=== PATIENT | male | born 1985 | race Caucasian/White ===

== ENCOUNTER → 2019-12-21 10:49 | Outpatient (BNVA) | payer MEDICARE, MEDICAID, SELFPAY | PROVIDERS: PCP Nurse Practitioner Family; Visit Provider Nurse Practitioner Family | DX: E84.9 Cystic fibrosis, unspecified (principal) | CPT/HCPCS: 80053; 82977 ==

== ENCOUNTER → 2020-03-25 12:30 | Outpatient (BNVA) | payer MEDICARE, MEDICAID, SELFPAY | PROVIDERS: PCP Nurse Practitioner Family; Visit Provider Nurse Practitioner Family | DX: Z20.2 Contact with and (suspected) exposure to infections with a predominantly sexual mode of transmission (principal) | CPT/HCPCS: 87491; 87591 ==

== ENCOUNTER → 2021-01-17 10:01 | Outpatient (BNVA) | payer MEDICARE, MEDICAID, SELFPAY | PROVIDERS: PCP Nurse Practitioner Family; Visit Provider Nurse Practitioner Family | DX: L29.3 Anogenital pruritus, unspecified (principal) | CPT/HCPCS: 81000; 87491; 87591; 87661 ==

== ENCOUNTER 2021-03-25 11:33 | Outpatient (CLI) | payer MEDICARE, MEDICAID, SELFPAY ==
--- NOTE | 2021-03-25 11:43 | MR_ITS ---
WS: [id number] MRI HEAD WITH CONTRAST WITH ATTENTION TO THE INTERNAL AUDITORY CANALS TECHNIQUE: Sagittal T1, T2 axial, T2 axial flair, axial susceptibility weighted imaging, axial diffus ion weighted images, and coronal T2 images were obtained. Pre and post T1 axial and post T1 coronal i mages. ADC and FSPGR images. Post gadolinium images with attention to the internal auditory canals. A xial fiesta imaging. CLINICAL INFORMATION: AMIRA SENSORINEURAL HEARING LOSS;AMIRA TINNITUS COMPARISON: None. FINDINGS: No evidence of restricted diffusion to suggest acute ischemia. Ventricular system and basal cisterns are patent. Normal camp-white differentiation. No suspicious intracranial signal abnormalities. Nelda l posterior fossa. Normal vascular flow voids at the skull base. No extra-axial fluid collections. No evidence of mass or mass effect. Mastoid air cells are well aerated. Mild mucosal thickening in the paranasal sinuses. No hemosiderin on susceptibly weighted images. Temporal lobes and hippocampal formations are normal i n appearance. Proximal 7th and 8th cranial nerves are normal. No evidence of enhancing IAC or CP angle mass. Normal trigeminal nerve root entry zones. Normal optic chiasm and pituitary infundibulum. No abnormal paren chymal enhancement. Normal dural venous sinuses. MR/MR iac's wo/w con* [id number] IMPRESSION: 1. No evidence of enhancing IAC or CP angle mass. 2. Normal trigeminal nerve entry zones. 3. Mastoid air cells are well aerated. 4. Mild mucosal thickening in the paranasal sinuses. 5. No other significant findings.
== END 2021-03-25 11:34 | disposition home or self-care (01) ==
PROVIDERS: Visit Provider Otolaryngology
DX: H90.3 Sensorineural hearing loss, bilateral (principal); H93.13 Tinnitus, bilateral
CPT/HCPCS: 70553; A9579

== ENCOUNTER → 2021-07-23 09:10 | Outpatient (BNVA) | payer MEDICARE, MEDICAID, SELFPAY | PROVIDERS: PCP Nurse Practitioner Family; Visit Provider Nurse Practitioner Family | DX: I10 Essential (primary) hypertension (principal); E11.9 Type 2 diabetes mellitus without complications; E78.5 Hyperlipidemia, unspecified | CPT/HCPCS: 80053; 80061; 83036 ==

== ENCOUNTER 2022-03-19 16:31 | Emergency (ER) | payer MEDICARE, MEDICAID, SELFPAY ==
[2022-03-19 16:45] VITALS: BP 133/83; PULSE 105; RESP 16; TEMP 37.5; O2SAT 94; BMI 27.1
--- NOTE | 2022-03-19 17:10 | W.ED.FEVER ---
HPI - Fever General: Chief Complaint: Fever Stated Complaint: Fever, cough, Congestion Time Seen by Provider: 03/19/22 17:08 History of Present Illness: 37-year-old male patient comes in today with complaints of fever, cough, congestion. Patient reports illness for the last 2 days. Patient reports fever. Patient has a history of cystic fibrosis. Patient routinely takes azithromycin daily. Patient appears nontoxic. Associated symptoms: Deny chest pain, nausea or vomiting Review of Systems Const: Reports: fever(s) Card: Denies: chest pain Resp: Reports: productive cough GI: Denies: nausea or vomiting PFSH ED PFSH: Medical History Cystic fibrosis Psychiatric care Family History Mother CAD (coronary artery disease) Diabetes Father CAD (coronary artery disease) Social History (Updated 01/09/22 @ 14:05 by Malena Salazar LPN) Smoking and tobacco status: never smoked Alcohol intake: never Adopted: No Caregiver/support person: No Lives independently: No service: No Current occupational status: employed Sexually active: Yes Current gender identity: Male Physical Exam Const: COMMON NORMALS: alert HENMT: COMMON NORMALS: normocephalic HEAD & SCALP: normocephalic THROAT: posterior oropharynx abnormal erythema Neck/C-Spine: COMMON NORMALS: full ROM Resp: COMMON NORMALS: normal respiratory effort AUSCULTATION: crackles and wheezes Cardio: COMMON NORMALS: regular rate and regular rhythm RATE: regular rate RHYTHM: regular rhythm Extremity: COMMON NORMALS: full ROM Neuro: SENSORIUM/ORIENTATION: Yes alert Skin: COMMON NORMALS: turgor normal GENERAL SKIN EXAM: turgor normal Course Vital Signs: Vital signs: Vital Signs Temperature 99.5 F 03/19/22 16:45 Pulse Rate 105 H 03/19/22 16:45 Respiratory Rate 16 03/19/22 16:45 Blood Pressure 133/83 03/19/22 16:45 Pulse Oximetry 94 03/19/22 16:45 Oxygen Delivery Me thod 03/19/22 16:45 MDM - Fever Medical Decision Making Patient comes in today for a fever for the last 2 days with some cough and congestion. Patient does have a history of cystic fibrosis. On exam patient has crackles throughout lung delgado. Vital signs are unremarkable. Differential diagnosis includes but not limited to pneumonia, CF exacerbation, influenza, COVID-19. Chest x-ray was unremarkable. COVID was negative. Influenza was positive for type A. Patient be started on Tamiflu 75 mg twice a day for 5 days. Patient was also written a prescription and a pocket for 750 of Levaquin for worsening shortness of breath and fever due to his high risk with cystic fibrosis. Patient reports understanding and agreed to plan. Lab Data Radiology Impressions Chest X-Ray 03/19/22 17:19 IMPRESSION: No acute findings. Laboratory Results Influenza Type A Ag positive (Negative) 03/19/22 17:31 Influenza Type B Ag negative (Negative) 03/19/22 17:31 SARS-CoV-2 Ag (Rapid) negative (Negative) 03/19/22 17:31 Discharge Plan Discharge Patient Disposition: Home Clinical Impression: Influenza A, Cystic fibrosis Condition: Stable Prescriptions: New Tamiflu 75 mg capsule 75 mg PO BID 5 Days Qty: 10 0RF levofloxacin 750 mg tablet 750 mg PO DAILY 7 Days Qty: 7 0RF No Action albuterol sulfate 2.5 mg/0.5 mL solution for nebulization 5 mg inhalation Q4H Pulmozyme 1 mg/mL solution 2.5 mg inhalation BID TRIC PO insulin aspart U-100 [Novolog Flexpen U-100 Insulin] 100 unit/mL (3 mL) insulin pen 7.5 unit SUBCUT TID Lantus U-100 Insulin 100 unit/mL solution 25 unit SUBCUT DAILY Pertzye 4,000-14,375- 15,125 unit capsule,delayed release(DR/EC) PO diclofenac sodium [Voltaren Arthritis Pain] 1 % gel 2 g topical BID Qty: 100 3RF Rx Instructions: apply to elbow (DME) pen needle, diabetic [BD Ultra-Fine Mini Pen Needle] 31 gauge x 3/16 needle See Rx Instructions .ROUTE .COMPLEX Qty: 100 0RF Dose Instruction: USE DIRECTED TO INJECT INSULIN Rx Instructions: USE DIRECTED TO INJECT INSULIN nystatin [Nystop] 100,000 unit/gram powder See Rx Instructions .ROUTE .COMPLEX Qty: 30 0RF Dose Instruction: APPLY TO THE AFFECTED AREA TOPICALLY TWICE DAILY Rx Instructions: APPLY TO THE AFFECTED AREA TOPICALLY TWICE DAILY (DME) FreeStyle Foster 14 Day Sensor Kit See Rx Instructions .Route Qty: 1 12RF Rx Instructions: As directed Discharge Orders: Discharge ED (Routine); Ordered 03/19/22 Ordered By: Nam Pineda Referrals: Mauri Reid DO [Primary Care Provider] - Discharge Diet: Usual diet Discharge Activity: Increase activity as tolerated Patient Instructions: Influenza (ED) Activity Restrictions/Additional Instructions: Drink plenty of water. Take Tamiflu 75 mg twice a day for 5 days. Monitor for worsening symptoms. If breathing becomes worse or fever does not resolve by day 5 I would recommend starting Levaquin 750 mg daily or per recommendation of your cystic fibrosis doctor. Follow-up with primary care for further instruction. Return to ED for new concerns. Coding Level of Care Code ED Heater Helper for Rene Fwd Exam Detailed
--- NOTE | 2022-03-19 17:19 | XRR_ITS ---
PROCEDURE INFORMATION: Exam: XR Chest Exam date and time: 03/19/2022 6:32 PM Age: 37 years old Clinical indication: Cough and fever; Additional info: Cough, congestion, fever, HX of cf TECHNIQUE: Imaging protocol: Radiologic exam of the chest. Views: 1 view. COMPARISON: CR XR chest 2V* [id number] 07/02/2017 9:21 AM FINDINGS: Lungs: Diffuse coarsening of the lung parenchyma. No consolidation. Pleural spaces: Unremarkable. No pleural effusion. No pneumothorax. Heart/Mediastinum: Unremarkable. No cardiomegaly. Bones/joints: Unremarkable. XR/XR chest 1V portable [id number] IMPRESSION: No acute findings.
[2022-03-19 18:04] LABS: Influenza A by IFA positive (Negative); Influenza B by IFA negative (Negative)
[2022-03-19 18:13] LABS: SARS Covid-2 Antigen negative (Negative)
[2022-03-19] MEDS: oseltamivir phosphate 75 mg Capsule PO (18:21)
== END 2022-03-19 19:42 | disposition home or self-care (01) ==
PROVIDERS: Emergency Provider Nurse Practitioner Family; PCP Orthopaedic Surgery
DX: J10.1 Influenza due to other identified influenza virus with other respiratory manifestations (principal); E84.9 Cystic fibrosis, unspecified; Z79.4 Long term (current) use of insulin; Z20.822 Contact with and (suspected) exposure to COVID-19
CPT/HCPCS: 71045; 87426; 87804; 99283

== ENCOUNTER → 2022-07-03 08:49 | Outpatient (BNVA) | payer MEDICARE, MEDICAID, SELFPAY | PROVIDERS: PCP Orthopaedic Surgery; Visit Provider Nurse Practitioner Family | DX: E11.9 Type 2 diabetes mellitus without complications (principal) | CPT/HCPCS: 83036 ==

== ENCOUNTER → 2023-01-01 09:44 | Outpatient (BNVA) | payer MEDICARE, MEDICAID, SELFPAY | PROVIDERS: PCP Orthopaedic Surgery; Visit Provider Nurse Practitioner Family | DX: B35.9 Dermatophytosis, unspecified (principal); E11.9 Type 2 diabetes mellitus without complications | CPT/HCPCS: 80048; 83036 ==

== ENCOUNTER → 2023-07-16 09:19 | Outpatient (BNVA) | payer MEDICARE, MEDICAID, SELFPAY | PROVIDERS: PCP Nurse Practitioner Family; Visit Provider Nurse Practitioner Family | DX: E11.9 Type 2 diabetes mellitus without complications (principal) | CPT/HCPCS: 80048; 80061; 83036 ==

== ENCOUNTER → 2023-07-21 16:27 | Outpatient (BNVA) | payer MEDICARE, MEDICAID, SELFPAY | PROVIDERS: PCP Nurse Practitioner Family; Visit Provider Nurse Practitioner | DX: R50.9 Fever, unspecified (principal) | CPT/HCPCS: 87400; 87426 ==

== ENCOUNTER → 2023-10-23 12:04 | Outpatient (BNVA) | payer MEDICARE, MEDICAID, OTHER, SELFPAY | PROVIDERS: PCP Nurse Practitioner Family; Visit Provider Nurse Practitioner | DX: R82.5 Elevated urine levels of drugs, medicaments and biological substances (principal) | CPT/HCPCS: 80306 ==

== ENCOUNTER → 2024-02-03 08:34 | Outpatient (BNVA) | payer MEDICARE, MEDICAID, SELFPAY | PROVIDERS: PCP Nurse Practitioner Family; Visit Provider Nurse Practitioner Family | DX: E11.9 Type 2 diabetes mellitus without complications (principal) | CPT/HCPCS: 80053; 83036 ==

== ENCOUNTER → 2024-06-30 08:48 | Outpatient (BNVA) | payer MEDICARE, MEDICAID, OTHER, SELFPAY | PROVIDERS: PCP Nurse Practitioner Family; Visit Provider Nurse Practitioner Family | DX: E11.9 Type 2 diabetes mellitus without complications (principal); E84.9 Cystic fibrosis, unspecified | CPT/HCPCS: 80053; 82977; 83036 ==

== ENCOUNTER → 2024-08-19 10:39 | Outpatient (BNVA) | payer MEDICARE, MEDICAID, OTHER, SELFPAY | PROVIDERS: PCP Nurse Practitioner Family; Visit Provider Nurse Practitioner Family | DX: E11.9 Type 2 diabetes mellitus without complications (principal); E84.9 Cystic fibrosis, unspecified | CPT/HCPCS: 80053; 82977 ==

== ENCOUNTER → 2024-09-06 15:51 | Outpatient (BNVA) | payer MEDICARE, MEDICAID, SELFPAY | PROVIDERS: PCP Nurse Practitioner Family; Visit Provider Emergency Medicine | DX: M79.674 Pain in right toe(s) (principal) | CPT/HCPCS: 73630 ==

== ENCOUNTER → 2024-09-14 09:40 | Outpatient (BNVA) | payer MEDICARE, MEDICAID, SELFPAY | PROVIDERS: PCP Nurse Practitioner Family; Visit Provider Internal Medicine | DX: Z79.899 Other long term (current) drug therapy (principal); E84.9 Cystic fibrosis, unspecified | CPT/HCPCS: 80053; 82977 ==

== ENCOUNTER → 2024-10-06 10:31 | Outpatient (BNVA) | payer MEDICARE, MEDICAID, SELFPAY | PROVIDERS: PCP Nurse Practitioner Family; Visit Provider Internal Medicine | DX: E84.9 Cystic fibrosis, unspecified (principal); E11.9 Type 2 diabetes mellitus without complications | CPT/HCPCS: 80053; 82977 ==

== ENCOUNTER → 2024-11-03 10:27 | Outpatient (BNVA) | payer MEDICARE, MEDICAID, SELFPAY | PROVIDERS: PCP Nurse Practitioner Family; Visit Provider Internal Medicine | DX: E84.9 Cystic fibrosis, unspecified (principal); E11.9 Type 2 diabetes mellitus without complications | CPT/HCPCS: 80053; 82977 ==

== ENCOUNTER → 2024-12-14 09:19 | Outpatient (BNVA) | payer MEDICARE, MEDICAID, SELFPAY | PROVIDERS: PCP Nurse Practitioner Family; Visit Provider Internal Medicine | DX: E84.9 Cystic fibrosis, unspecified (principal); Z79.899 Other long term (current) drug therapy | CPT/HCPCS: 80053; 82977 ==

== ENCOUNTER → 2025-02-28 11:28 | Outpatient (BNVA) | payer MEDICARE, MEDICAID, SELFPAY | PROVIDERS: PCP Nurse Practitioner Family; Visit Provider Internal Medicine | DX: E84.9 Cystic fibrosis, unspecified (principal); E11.9 Type 2 diabetes mellitus without complications | CPT/HCPCS: 80053; 82977; 83036 ==